=== PATIENT | male | born 2000 | race Two or more races ===

== ENCOUNTER 2023-05-04 12:44 | Emergency (ER) | payer OTHER ==
[~2023-05-04] VITALS: Ht 162.6 cm; Wt 64.3 kg
[2023-05-04 13:06] VITALS: BP 129/84; PULSE 64; RESP 16; O2SAT 99
[2023-05-04] MEDS ORDERED: cefTRIAXone 1GM/50ML D5W 50 ML IV ONE (14:00)
[2023-05-04] MEDS ORDERED: CLINDAMYCIN 600MG IV 50 ML IV ONE (14:00)
== END 2023-05-04 16:03 | disposition home or self-care (01) ==
LOC: ER 12:44
DX: T82.898A Other specified complication of vascular prosthetic devices, implants and grafts, initial encounter (principal); Y92.89 Other specified places as the place of occurrence of the external cause
CPT/HCPCS: J3490